=== PATIENT | male | born 1955 | race Caucasian/White ===

== ENCOUNTER 2017-03-16 18:49 | Emergency (ER) | payer BC ==
[2017-03-16] MEDS ORDERED: Sodium Chloride 0.9% 1,000 ML PRIMARY IV ONE (19:24)
[2017-03-16] MEDS ORDERED: NORMAL SALINE 10 ML SYRINGE FLUSH IVP PRN (19:24)
[2017-03-16 19:28] LABS: BASOPHILS # (AUTO) 0.06 10*3/UL; BLOOD UREA NITROGEN 15 mg/dL (7-22); BUN/CREATININE RATIO 13.63 (6-20); CALCIUM 9.2 mg/dL (8.7-10.7); EOSINOPHILS # (AUTO) 0.34 10*3/UL; EOSINOPHILS % (AUTO) 5.6 % (0-8); EST GLOMERULAR FILTRATION > 60 (>60 ml/min/1.73m(2)); HEMATOCRIT 41.9 % (42.0-52.0); HEMOGLOBIN 13.7 g/dL (14.0-18.0); MEAN CORPUSCULAR HEMOGLOBIN 29.6 PG (27-31); MEAN CORPUSCULAR HGB CONC 32.7 g/dL (33-37); MEAN CORPUSCULAR VOLUME 90.5 FL (80-90); MEAN PLATELET VOLUME 9.5 FL (7.4-12.2); MONOCYTES % (AUTO) 9.8 % (5-15); NEUTROPHILS # (AUTO) 3.59 10*3/UL; NEUTROPHILS % (AUTO) 58.8 % (50-80); RED BLOOD COUNT 4.63 10^6/uL (4.70-6.10); SERUM ALBUMIN 4.1 g/dL (3.5-4.8)
[2017-03-16 19:29] LABS: PLATELET MORPHOLOGY COMMENT NORMAL MORPHOLOGY (NORM); RBC MORPHOLOGY COMMENT NORMAL MORPHOLOGY (NORM); WBC MORPHOLOGY COMMENT NORMAL MORPHOLOGY (NORM)
[2017-03-16 19:45] LABS: BILIRUBIN,URINE LARGE (NEG); CLARITY,URINE TURBID (CLEAR); GLUCOSE, URINE (UA) 100 mg/dL (NEG); NITRATE,URINE POSITIVE (NEG); OCCULT BLOOD,URINE LARGE (NEG); PROTEIN,URINE >300 mg/dl (NEG); URINE SAMPLE TYPE VOID
[2017-03-16 19:46] LABS: COLOR,URINE RED; RBC,URINE >100 /hpf; WBC,URINE 25-50
[2017-03-16 19:47] LABS: URINE CRYSTALS MANY
[2017-03-16 20:05] VITALS: TEMP 96.9
--- NOTE | 2017-03-16 20:06 | EKG ---
[address] [place] [address] Measurements Intervals [place] Rate: 63 P: 77 WV: 184 QRS: -10 QRSD: 94 T: 61 QT: 322 QTc: 330 Interpretive Statements SINUS RHYTHM NONSPECIFIC T-WAVE ABNORMALITY (consider hypokalemia or hypocalcemia) INTERPRETATION BASED ON A DEFAULT AGE OF 40 YEARS Compared to ECG 10/15/2016 12:02:32 No significant changes Electronically Signed On 03-21-17 09:57:12 MDT by Sidney Viveros MD [email or web address]
[2017-03-16] MEDS ORDERED: HYDROmorphone 2 MG/1 ML IVP ONE (20:50)
--- NOTE | 2017-03-16 21:26 | DI ---
HISTORY: Lower abdominal pain. Prostate surgery 2 weeks ago. COMPARISON: None available. TECHNIQUE: Contrast enhanced images of the abdomen and pelvis were obtained and submitted for interp retation. FINDINGS: Limited sections of the lung bases demonstrate bibasilar linear-appearing opacities sugges tive of atelectasis. There is cardiomegaly. The liver, spleen, surgically removed gallbladder, atrophied pancreas, both kidneys, and both adrenal glands demonstrate no acute findings. Scattered calcifications in both kidneys suggests renal calculi. There is a subcapsular fluid collection in the interpolar region of the left kidney measuring 1.6 x 4 .1 cm. Differentials include subcapsular hematoma versus abscess. There is irregularity of the left kidney, and pyelonephritis is not excluded. The aorta and IVC demonstrates no acute findings. There is atherosclerotic calcification of the aort a. There are clips noted at the GE junction. The stomach is distended with residue. The gastric antrum is thickened. There is a highly dense structure noted at the first part of the duodenum on series 2 image 62. This is equivocal for surgical prosthesis versus ingested endoluminal content. Small mesenteric lymph nodes identified. There is moderate to severe constipation. There is no free fluid. There is no free air. The prostate gland is not clearly identified. There is significant fecal distention at the rectum. The cecum is slightly dilated. The appendix is not clearly visualized although there are no secondary signs of appendicitis. There is a Dumont catheter, with its tip abutting the dome of the urinary bladder. The urinary bladde r is decompressed. There is no solid pelvic mass. The visualized osseous structures demonstrate no destructive abnormality. There is diffuse degenerat [place] change. There is diffuse endplate sclerosis with multiple Schmorl's nodes. There is narrowing o f the T12 and T11 vertebral bodies with approximately 5-10% loss of height. Compression fractures no t excluded. IMPRESSION: 1. Bibasilar linear-appearing opacities suggestive of atelectasis. 2. There is cardiomegaly. 3. Scattered calcifications in both kidneys suggests renal calculi. 4. There is a subcapsular fluid collection in the interpolar region of the left kidney measuring 1.6 x 4.1 cm. Recommend correlation with ultrasound. Differentials include subcapsular hematoma versus abscess. 5. There is irregularity of the left kidney, and pyelonephritis is not excluded. Recommend correlati on with ultrasound. Recommend correlation with urinalysis. 6. There is atherosclerotic calcification of the aorta. 7. There are clips noted at the GE junction. The stomach is distended with residue. The gastric ant rum is thickened. Endoscopy could be appropriate. 8. There is a highly dense structure noted at the first part of the duodenum on series 2 image 62. T his is equivocal for surgical prosthesis versus ingested endoluminal content. 9. Small mesenteric lymph nodes identified. 10. There is moderate to severe constipation. 11. Evidence of fecal retention and distention at the rectum. 12. There is a Dumont catheter, with its tip abutting the dome of the urinary bladder. 13. Diffuse degenerative change. There is diffuse endplate sclerosis with multiple Schmorl's nodes. There is narrowing of the T12 and T11 vertebral bodies with approximately 5-10% loss of height. Cor relation point tenderness is recommended. MRI could be helpful. Compression fractures not excluded. NOTIFICATION: The above findings and recommendations were phoned to Cristina Cotto in the ER Department on 03/16/2017 at 11:32 PM EST.
[2017-03-17 00:13] VITALS: RESP 20
--- NOTE | 2017-03-17 01:38 | PDOC ---
Male Genitourinary Problem HPI - General Chief Complaint: Genitourinary Complaint Stated Complaint: Bleeding from urethra with clots Date Seen by Provider: 03/16/17 Time Seen by Provider: 19:10 Source: POSITIVE: Patient, Spouse Exam Limitations: POSITIVE: No limitations Nurse's Notes Reviewed & Considered: Yes - History of Present Illness Initial Comments: The patient is a 61 year old male. He states that he underwent a TURP on 10 February in [place]. He has had some intermittent hematuria since this procedure. He states that postoperatively he had a Dumont catheter for day or so this was removed. Then about 3 days later he was readmitted to the hospital in [place] with hematuria and the passage of clots. He also had a similar episode on March 02 and was recatheterized for about one week. He has been on antibiotics since his surgery. He states he was initially on Levaquin but then this was switched to a different antibiotic. History of atrial fibrillation; he was on Xerelto, but this was was discontinued preoperatively and he has been off of his anticoagulant for the past 5 weeks, but was restarted yesterday and patient has had one dose of Xarelto since his surgery. Patient had a heart catheterization 1 week before surgery which was reportedly normal. Patient is also on a beta eloise for his atrial fibrillation. Patient presents to the emergency room stating that he once again developed some hematuria around 1 PM yesterday. Patient's states that they contacted his urologist's office in [place], and they have an appointment tomorrow with patient's urologist. Patient does complain of some lower abdominal discomfort and cramping. Body Location Affected: REPORTS: Abdomen, Genitalia (As above) Timing: REPORTS: Abrupt Duration: >24 hours (Approximately 24 hours) Severity: Moderate Quality: REPORTS: Cramping, "Pain" (Lower abdomen) Context: REPORTS: Recent Surgery (TURP as above). DENIES: Drug Use, Lifting, Trauma, Other (please comment) Sexual History: DENIES: Non-Contributory, Homosexual, Unprotected Zinc, Known Exposure to STD, Other Associated Symptoms: REPORTS: Blood in Urine (With some clots) Similar Symptoms Previously: Yes (as above) Recent Care Received: REPORTS: Recently Seen, Treated by MD, Hospitalized, Surgery (As above) - Patient Home Medications Home Medications: Home Medications Clonazepam 2 mg PO HS tab 12/21/13 Trazodone HCl 200 mg PO HS tab 12/21/13 Prazosin HCl 6 mg PO QHS cap 06/13/15 Bupropion HCl [Wellbutrin Xl] 1 tab PO DAILY tab 12/05/15 Ferrous Sulfate [Iron] 325 mg PO QD cap 12/03/16 Folic Acid 1 tab PO DAILY tab 12/03/16 Rivaroxaban [Xarelto] 20 mg PO QPM tab 12/03/16 Tramadol HCl 1 - 2 tab PO Q4-6H #60 tab 01/31/17 Baclofen 20 mg PO DAILY 03/16/17 Cyclobenzaprine HCl [Flexeril] 10 mg PO TID 03/16/17 Glucosamine/D3/Boswellia Kelly [Osteo Bi-Flex Caplet] 1 tab PO BID 03/16/17 Levofloxacin Tab [Levaquin Tab] 500 mg PO DAILY 03/16/17 Metoprolol Tartrate 25 mg PO EVERY AM 03/16/17 Tamsulosin HCl [Flomax] 0.4 mg PO EVERY AM 03/16/17 Venlafaxine HCl 150 mg PO EVERY AM 03/16/17 - Patient Allergies Allergies/Adverse Reactions: Allergies Allergy/AdvReac Type Severity Reaction Status Date / Time No Known Drug Allergies Allergy NOT Verified 03/16/17 19:14 APPLICABLE Past Medical History - heen HEENT History: Glaucoma Cardiovascular History: Hypertension, Arrhythmia, Other (please comment) Additional Cardiovasular History: A-fib with cardioversion Respiratory History: COPD, Pneumonia Gastrointestinal History: Gallbladder Disease, Other (please comment) Additional Gastrointestinal History: bleeding ulcers, umbilical hernia repair. Genitourinary History: Kidney Stones, Other (please comment) Additional Genitourinary History: BPH. TURP January 2017 Endocrine History: Denies History Musculoskeletal History: Denies History Prosthesis or Implant: No Neurological History: Denies History Blood Disorders: Previous Bld Transfusions Psychiatric History: Depression, Anxiety Disorders History of Sexually Transmitted Diseases: No Cancer History: Denies History In Past Year Been Physically Harmed or Verbally Threatened: No History of MDRO: No History of Other Communicable Diseases: No Tobacco Use: Never Smoker Alcohol Use: None Substance Use Type: None Previous Surgical History: Yes Type / Date of Surgery: partial gastrectomy (x2), umbilical hernia repair, glaucoma surgery, TURP, romi, appe, kidney stones Anesthesia Reactions: Yes (nausea) Significant Family History: No pertinent family hx Past Medical History Reviewed: Reviewed - No Changes ROS - Limitations ROS Limitations: No Limitations Constitution: REPORTS: Denies Symptoms Cardiovascular: REPORTS: Denies Cardiac Symptoms Respiratory: REPORTS: Denies Resp Symptoms Neurological: REPORTS: Denies Neuro Symptoms Gastrointestinal: REPORTS: Abdominal Pain (Lower abdominal discomfort and cramping) Endocrine: REPORTS: Denies Symptoms Musculoskeletal: REPORTS: Denies MS Symptoms Genitourinary: REPORTS: Hematuria Eyes: REPORTS: Denies Symptoms ENT: REPORTS: Denies Symptoms Skin: REPORTS: Denies Skin Symptoms Lympathic: REPORTS: Denies Lympathic Symptoms Immunologic: POSITIVE: Denies Symptoms Psychiatric: POSITIVE: Denies Psych Symptoms Male Genitourinary Exam - General Appearance General Appearance: POSITIVE: Alert, Cooperative, No Acute Distress, No Evidence of Trauma - Abdomen Abdomen: Soft: (All Quadrants), Normal Bowel Sounds: (All Quadrants), Denies Tenderness: (LUQ), (RUQ), No Splenomegaly: (All Quadrants), No Hepatomegaly: ( All Quadrants), No Guarding: (All Quadrants), No Rebound: (All Quadrants), No Palpable Pulse: (All Quadrants), No Palpabale Mass: (All Quadrants), No Distention: (All Quadrants), No Rigidity: (All Quadrants), Tenderness Noted: ( RLQ), (LLQ) Additional Details: Abdominal examination shows bowel sounds to be active. Patient does complain of some mild discomfort on firm palpation over the lower abdomen, without masses or organomegaly or rebound. - Genital / Rectal Genitals: POSITIVE: Urethral Discharge (Bloody discharge; clot at tip of the urethra.), Circumcised, Other (Hypospadius. Dumont catheter easily passed. Urine was grossly bloody. Bladder irrigated with a couple liters of saline and on discharge urine is pinkish. Several clots irrigated out of bladder.) - HEENT HEENT: POSITIVE: Head Inspection Nml, Eyes Inspection Nml, Ears Inspection Nml, Nose Inspection Nml, Oral/Dental Inspect. Nml, Pharynx Inspect. Nml, PERRL, EOMI - Neck Neck: POSITIVE: Normal Inspection, No Apparent Injury - Respiratory Respiratory: POSITIVE: No Respiratory Distress, Breath Sounds Normal, Chest Non- Tender - Cardiovascular Cardiovascular: POSITIVE: Regular Rate and Rhythm, Heart Sounds Normal, Equal Pulses, Strong Pulses Peripheral Pulses: Radial (R): 2+, Radial (L): 2+ - Back Back: POSITIVE: Normal Inspection. NEGATIVE: CVA Tenderness (R), CVA Tenderness (L) - Extremities Extremity: Non-Tender: (All Extremities), Normal ROM: (All Extremities), Normal Inspection: (All Extremities) - Neurological / Psychological Neurological: POSITIVE: Oriented X3, subject scientific research Normal As Tested, Motor Normal, Sensation Normal, 5, 6 - Skin Skin: POSITIVE: Intact, Normal For Race, Warm, Dry, No Rash Procedure - Additional Procedures Additional Procedures: Other (Dumont catheter placed without difficulty. Patient is noticed to have hypospadius. Bladder irrigated with somewhat over 2 L of normal saline. Several clots were irrigated out and urine is still pinkish but not frankly bloody, as it was on presentation to the emergency room. ) Images - Genitalia Male Genitalia: 1 - Hypospadia - Complete Complete: 1 - Some discomfort on palpation Male Genitourinary Progress - Results Reviewed by me Xrays/CTs/US Reviewed by me: Yes Discussed with Radiologist: Yes Radiology Findings: CT scan abdomen and pelvis shows a subcutaneous Fluid Collection in the Interpolar Region of the Left Kidney Measuring 1.6 x 4[address] Scan Given 2 Patient, and Patient's Urologist to Review Results of This CT Scan Tomorrow at the Patient's Appointment with Urology. Lab Results Reviewed: Yes Lab Results: Laboratory Results 03/16/17 03/16/17 Range/Units 18:55 19:40 WBC 6.10 (4.8-10.8) 10^3/uL RBC 4.63 L (4.70-6.10) 10^6/uL Hgb 13.7 L (14.0-18.0) g/dL Hct 41.9 L (42.0-52.0) % MCV 90.5 H (80-90) FL MCH 29.6 (27-31) PG MCHC 32.7 L (33-37) g/dL RDW Std Deviation 47.8 (39-50) fL RDW Coeff of Klaudia 14.8 H (11.5-14.5) % Plt Count 185 (140-350) 10*3/uL MPV 9.5 (7.4-12.2) FL Immature Gran % (Auto) 0.2 (0-5) % Neut % (Auto) 58.8 (50-80) % Lymph % (Auto) 24.6 (10-50) % Power % (Auto) 9.8 (5-15) % Eos % (Auto) 5.6 (0-8) % Baso % (Auto) 1.0 (0-1) % Immature Gran # (Auto) 0.01 10*3/UL Neut # (Auto) 3.59 10*3/UL Lymph # (Auto) 1.50 10*3/uL Power # (Auto) 0.60 (0.3-0.8) 10*3/UL Eos # (Auto) 0.34 10*3/UL Baso # (Auto) 0.06 10*3/UL WBC Morphology Comment Normal morphology (NORM) Plt Morphology Comment Normal morphology (NORM) RBC Morph Comment Normal morphology (NORM) PT 13.1 H (9.7-11.4) secs INR 1.27 (0.00-5.90) N/A APTT 39.9 H (22.6-31.3) SECS Sodium 143 (135-145) meq/L Potassium 3.8 (3.8-5.2) meq/L Chloride 106 (98-112) meq/L Carbon Dioxide 25 (23-33) meq/L Anion Gap 12 (5-20) BUN 15 (7-22) mg/dL Creatinine 1.1 (0.70-1.50) mg/dL Estimated GFR > 60 (>60 ml/min/1.73m(2)) BUN/Creatinine Ratio 13.63 (6-20) Glucose 79 (78-110) mg/dL Calculated Osmolality 295.0 H (267-292) mOsm/kg Calcium 9.2 (8.7-10.7) mg/dL Total Bilirubin 0.4 (0.3-1.2) mg/dL AST 38 (21-57) IU/L ALT 33 (21-72) IU/L Alkaline Phosphatase 115 (38-126) IU/L Total Protein 6.6 (6.1-8.0) g/dL Albumin 4.1 (3.5-4.8) g/dL Globulin 2.5 (2.50-4.10) g/dL Albumin/Globulin Ratio 1.60 (1.3-2.0) mg/g Ur Collection Type Void Urine Color Red Urine Clarity Turbid (CLEAR) Urine pH 6.0 (5.0-8.5) Ur Specific [place] 1.010 (1.005-1.030) Urine Protein >300 (NEG) mg/dl Urine Glucose (UA) 100 (NEG) mg/dL Urine Ketones 15 (NEG) Urine Occult Blood Large H (NEG) Urine Nitrate Positive H (NEG) Urine Bilirubin Large (NEG) Urine Urobilinogen 2.0 (0.2) EU/dL Ur Leukocyte Esterase Large (NEG) Urine RBC >100 (NONE) /hpf Urine WBC 25-50 (NONE) Ur Squamous Epith Cells None (NONE) Ur Renal Epithelial Cell None (NONE) Urine Crystals Many Urine Bacteria None (NONE) Urine Casts None (NONE) Urine Mucus None (NONE) Urine Trichomonas None (NONE) Urine Yeast None (NONE) Ur Culture Indicated? Culture set EKG Interpreted/Reviewed By Me:: Yes (normal sinus rhythm; normal) EKG Interpretation:: POSITIVE: Normal Sinus Rhythm, Normal Rate, Normal Intervals, Normal [place], Normal QRS, Normal ST/T - Patient's Progress Pain Medication Addressed: POSITIVE: Yes (Patient given Dilaudid 2 mg IV) School/Work Release Addressed: POSITIVE: Not Applicable Re-Examine Time:: 22:00 Re-Examine Comment: Clots irrigated out of bladder as above. Patient feels better on discharge. Patient to follow-up with his urologist tomorrow, as is reportedly already arranged. To discontinue Xarelto for now. Electrocardiogram shows patient to be in normal sinus rhythm with no atrial fibrillation at this time. Status: POSITIVE: Improved, Re-Examined - Consult Counseled: POSITIVE: Patient, Family, RE: Lab Results, RE: Radiology Results, RE : DX, RE: Need for F/U Patient Care Time - Estimated PCT Patient Care Time (In Minutes): 62 Vital Signs - Recent Vital Signs Vital Signs: Vital Signs (Last 8 hours) Temp Pulse Pulse Resp BP BP Pulse Ox 03/16/17 22:45 58 L 20 100/64 100/64 94 03/16/17 20:30 104/66 03/16/17 20:00 108/71 03/16/17 19:45 105/71 03/16/17 19:30 108/75 03/16/17 19:15 103/67 03/16/17 19:10 107/71 03/16/17 19:05 104/68 03/16/17 18:58 100/71 03/16/17 18:55 79/45 03/16/17 18:50 96.9 F 85 22 91/61 92 - VS Reviewed Vital Signs Reviewed: Yes Discharge Clinical Impression: Post-op bleeding Discharge Disposition: Discharged to Home Condition: Fair Patient Instructions Given at Discharge: Hematuria (ED) Additional Instructions: Keep Dumont in place. Increase fluids. Follow-up with urology in [place] tomorrow. Return here anytime if condition worsens in any way, or as necessary. Follow Up With: ELIZABETH AMBROSIO [Primary Care Provider] - (Instructions as above. Return here as necessary. Follow-up with your primary care provider.)
== END 2017-03-16 22:47 | disposition home or self-care (01) ==
LOC: ER 18:49
DX: N99.820 Postprocedural hemorrhage of a genitourinary system organ or structure following a genitourinary system procedure (principal); R31.9 Hematuria, unspecified; R10.32 Left lower quadrant pain; R10.31 Right lower quadrant pain; Q54.8 Other hypospadias; I48.91 Unspecified atrial fibrillation; Z79.01 Long term (current) use of anticoagulants
CPT/HCPCS: 74177; 80053; 81001; 81003; 85025; 85610; 85730; 87088; 93005; 93010; 96361; 96374; 99284; J1170; J7030

== ENCOUNTER → 2017-03-25 | Outpatient (CLI) | payer BC ==
--- NOTE | 2017-03-25 10:53 | DI ---
US RETROPERITONEAL LIMITED,03/25/2017 7:46 AM: Clinical History: Kidney stones. Previous Exam: Abdominal ultrasound performed October 15, 2016 Findings: Multiple grayscale and color Doppler sonographic images are obtained of the retroperitoneum, and demo nstrate a normal-appearing urinary bladder with a prevoid volume of 125 cc and no significant post vo id residual. The left kidney measures 11.1 cm in length with a normal renal cortex. There is a 1.6 x 1.3 x 1.9 cm cyst noted. There is a large 1.4 cm shadowing stone within the left kidney as well as multiple other tiny renal c alculi. There is a hypoechoic area along the lateral cortex which was also seen on the CT scan and ap pears to represent a subcapsular hematoma or fluid collection. The right kidney measures 11.9 cm in length with normal renal cortex. There is a large shadowing 16 m m stone identified. Impression: 1. Hypoechoic area along the periphery of the left kidney most likely represents an old subcapsular h ematoma or a subcapsular cyst. 2. Multiple bilateral renal parenchymal stones. These are all better evaluated on the CT scan.
== END ==
LOC: US 07:41
DX: N20.0 Calculus of kidney (principal)
CPT/HCPCS: 76775